=== PATIENT | male | born 1955 | race Caucasian/White ===

== ENCOUNTER 2018-05-18 18:43 | Emergency (ER) | payer BC ==
[2018-05-18 19:55] VITALS: BP 120/67
[2018-05-18] MEDS ORDERED: Tetan/Diph/Pertus SYR(Tdap)* 0.5 ML SYR(BOOSTRIX) use SYR IM ONE (20:03)
--- NOTE | 2018-05-18 20:30 | UC ---
Laceration HPI - HPI Summary HPI Summary: 63-year-old male presents with scalp laceration to the top of his head. States earlier today he accidentally stood up and hit his head on the edge of a metal shelf. States bleeding was quickly controlled with direct pressure. Denies any headache, loss of consciousness, visual disturbances, memory loss, confusion , dizziness, vertigo, nausea, or vomiting. Unsure of last tetanus. - History Of Current Complaint Chief Complaint: UCLaceration Stated Complaint: HEAD LAC Time Seen by Provider: 05/18/18 20:04 Hx Obtained From: Patient Pain Intensity: 2 - Allergies/Home Medications Allergies/Adverse Reactions: Allergies Allergy/AdvReac Type Severity Reaction Status Date / Time Penicillins Allergy Hives Verified 05/18/18 19:51 PMH/Surg Hx/FS Hx/Imm Hx Endocrine History: Dyslipidemia - Surgical History Surgical History: Yes Surgery Procedure, Year, and Place: HERNIA REPAIR. - Family History Known Family History: Positive: Non-Contributory - Social History Occupation: Employed Full-time Lives: With Family Alcohol Use: Daily Alcohol Amount: 1-2 glass wine Substance Use Type: None Smoking Status (MU): Never Smoked Tobacco Review of Systems All Other Systems Reviewed And Are Negative: Yes Skin: Positive: Other - See HPI Eyes: Negative: Blurred Vision, Diplopia, Photophobia Respiratory: Positive: Negative Cardiovascular: Positive: Negative Gastrointestinal: Negative: Vomiting, Nausea Motor: Positive: Negative Neurovascular: Positive: Negative Musculoskeletal: Positive: Negative Neurological: Negative: Headache, Weakness, Paresthesia, Numbness, Other - dizziness Is Patient Immunocompromised?: No Physical Exam Triage Information Reviewed: Yes Appearance: Well-Appearing, No Pain Distress, Well-Nourished Vital Signs: Initial Vital Signs Temp 98 F 05/18/18 19:50 Pulse 82 05/18/18 19:50 Resp 16 05/18/18 19:50 BP 120/67 05/18/18 19:50 Pulse Ox 80 05/18/18 19:50 Vital Signs Reviewed: Yes Eye Exam: Normal Neck: Positive: Supple, Nontender Respiratory: Positive: Lungs clear, Normal breath sounds, No respiratory distress Cardiovascular: Positive: RRR, No Murmur Abdomen Description: Positive: Nontender, No Organomegaly, Soft. Negative: Distended, Guarding Bowel Sounds: Positive: Present Musculoskeletal: Positive: Strength Intact, ROM Intact Neurological: Positive: Alert Skin: Positive: Significant Lesion(s) - 1.5 cm superficial scalp laceration to top of head. Bleeding controlled. Wound margins well approximated. Laceration Course/Dx - Course/Dx Course Of Treatment: 63-year-old male presents with scalp laceration to the top of his head. States earlier today he accidentally stood up and hit his head on the edge of a metal shelf. States bleeding was quickly controlled with direct pressure. Denies any headache, loss of consciousness, visual disturbances, memory loss, confusion, dizziness, vertigo, nausea, or vomiting. Unsure of last tetanus. Afebrile. Vital signs stable. Exam reveals a 1.5 cm superficial linear scalp laceration to the top of his head. Wound margins were well approximated and no repair was necessary. Tetanus was updated. Wound care instructions and warning symptoms were reviewed with the patient. He is to follow-up with his primary care provider as needed. Verbalizes understanding and agrees with plan of care. - Differential Dx - Laceration/Wound Differental Diagnoses: Laceration - Diagnosis Provider Diagnosis: Superficial laceration of scalp Discharge - Sign-Out/Discharge Documenting (check all that apply): Patient Departure All imaging exams completed and their final reports reviewed: No Studies - Discharge Plan Condition: Stable Disposition: HOME Patient Education Materials: Laceration (ED) Referrals: Eileen Houston NP [Primary Care Provider] - Additional Instructions: You have a superficial laceration of the scalp that does not appear to need any repair. Keep the wound clean. You may wash your hair as normal but no hard scrubbing at site of wound as you may cause it to open again. Your tetanus (Tdap) was updated today. Be sure to let your primary care provider know so that they can update their records. Watch for signs of infection including fever greater than 100.5 F, redness that spreads, swelling, pain not controlled with over the counter pain medications, or pus draining from the wound. Seek immediate medical attention should any of these occur. - Billing Disposition and Condition Condition: STABLE Disposition: Home
== END 2018-05-18 20:37 | disposition home or self-care (01) ==
LOC: UCCORT 18:43
DX: S01.01XA Laceration without foreign body of scalp, initial encounter (principal); X58.XXXA Exposure to other specified factors, initial encounter; Y92.9 Unspecified place or not applicable; Z88.0 Allergy status to penicillin
CPT/HCPCS: 90471; 90715; 99212; G0463

== ENCOUNTER 2019-02-19 16:30 | Emergency (ER) | payer BC ==
[2019-02-19 17:21] VITALS: BP 120/82
--- NOTE | 2019-02-19 17:42 | UC ---
Skin Complaint HPI - HPI Summary HPI Summary: Left thumb injury from drill bit, entrance and exit wounds approx 1545. Last Tetanus approx 6 mos ago. he denies any tingling/numbness. - History of Current Complaint Chief Complaint: UCWounds Time Seen by Provider: 02/19/19 17:42 Stated Complaint: PUNCTURE WOUND LEFT THUMB Hx Obtained From: Patient Pain Intensity: 2 Pain Scale Used: 0-10 Numeric Aggravating Factor(s): Nothing Alleviating Factor(s): Nothing - Allergy/Home Medications Allergies/Adverse Reactions: Allergies Allergy/AdvReac Type Severity Reaction Status Date / Time Penicillins Allergy Hives Verified 02/19/19 17:14 PMH/Surg Hx/FS Hx/Imm Hx Previously Healthy: Yes Cardiovascular History: Cardiac Disease - Surgical History Surgical History: Yes Surgery Procedure, Year, and Place: HERNIA REPAIR. - Family History Known Family History: Positive: Unknown, Non-Contributory - Social History Alcohol Use: Daily Alcohol Amount: 1-2 glass wine Substance Use Type: None Smoking Status (MU): Never Smoked Tobacco Review of Systems All Other Systems Reviewed And Are Negative: Yes Constitutional: Negative: Fever, Chills, Fatigue Skin: Positive: Other - puncture wound L thumb. Negative: Rash Respiratory: Negative: Shortness Of Breath Musculoskeletal: Negative: Arthralgia, Decreased ROM, Edema Neurological: Negative: Weakness, Paresthesia, Numbness Physical Exam Triage Information Reviewed: Yes Appearance: Well-Appearing Vital Signs: Initial Vital Signs Temp 98.5 F 02/19/19 17:14 Pulse 78 02/19/19 17:14 Resp 16 02/19/19 17:14 BP 120/82 02/19/19 17:14 Pulse Ox 96 02/19/19 17:14 Vital Signs Reviewed: Yes Respiratory: Positive: No respiratory distress Cardiovascular: Positive: Brisk Capillary Refill - left fingers Musculoskeletal: Positive: ROM Intact - L thumb, No Edema - L thumb Neurological: Positive: Alert Skin: Positive: Other - left thumb puncture with an entry and exit wound. no active bleeding. Diagnostics - Radiology No standard instances Radiology Interpretation Completed By: Radiologist Summary of Radiographic Findings: No fx Course/Dx - Course Course Of Treatment: Puncture wound earlier today w/ no active bleeding at L thumb. No neuro involvement. ON xray no bone involvment. Will tx empirically. He is allergic to pcn. bactrim rx'd. we were able to dress wound w/ no complications. tetanus up to date. - Differential Diagnoses - Skin Complaint Differential Diagnoses: Foreign Body, Other - Diagnoses Provider Diagnosis: Puncture wound of finger Discharge ED - Sign-Out/Discharge Documenting (check all that apply): Patient Departure All imaging exams completed and their final reports reviewed: Yes - Discharge Plan Condition: Good Disposition: HOME Prescriptions: Sulfamethox/Trimethoprim SS* [Bactrim SS 400/80 TAB*] 1 tab PO BID 7 Days #14 tab Patient Education Materials: Puncture Wound (ED) Referrals: Eileen Houston NP [Primary Care Provider] - Additional Instructions: Please return if worsening. - Billing Disposition and Condition Condition: GOOD Disposition: Home - Attestation Statements Provider Attestation: I was available for consult. This patient was seen by the [facility]. The patient was not presented to , seen by or examined by va -Samantha Viera MD
== END 2019-02-19 18:15 | disposition home or self-care (01) ==
LOC: UCCORT 16:30
DX: S61.032A Puncture wound without foreign body of left thumb without damage to nail, initial encounter (principal); Z88.0 Allergy status to penicillin; W29.8XXA Contact with other powered hand tools and household machinery, initial encounter; Y92.9 Unspecified place or not applicable
CPT/HCPCS: 99212; G0463